=== PATIENT | female | born 1955 | race Caucasian/White ===

== ENCOUNTER 2022-05-19 09:48 | Emergency (ER) | payer MEDICARE ==
[~2022-05-19] VITALS: Ht 154.9 cm; Wt 57.3 kg
[~2022-05-19 09:48] MED LIST: SERT-128 PO; SIMV-45 PO
[2022-05-19] MEDS ORDERED: ondansetron/PF 4mg/2ml inj IV ONE (10:15)
[2022-05-19] MEDS ORDERED: morphine 4 MG/ML inj SYRINge IV ONE (10:40)
[2022-05-19 10:58] LABS: CLARITY,URINE CLEAR (Clear); COLOR,URINE STRAW (Yellow); GLUCOSE, URINE NEGATIVE (Neg); KETONES,URINE NEGATIVE (Neg); LEUKOCYTE ESTERASE ,URINE SMALL (Neg); NITRITES, URINE NEGATIVE (Neg); OCCULT BLOOD,URINE SMALL (Neg); PROTEIN,URINE NEGATIVE (Neg); UA COLLECTION TYPE CLN CATCH MIDSTREAM; UROBILINOGEN,URINE 0.2 E.U/dL (0.2-1.0)
[2022-05-19 11:03] LABS: BACTERIA,URINE 4+ /HPF (Neg); MUCUS STRANDS NONE SEEN /LPF (Neg); RBC,URINE 0-2 /HPF (0-2); SQUAMOUS EPITHELIAL CELL,UR FEW /LPF (FEW); WBC,URINE 0-4 /HPF (0-4)
[2022-05-19 11:15] LABS: BASOPHILS % (AUTO) 0.2 % (0-1); EOSINOPHILS % (AUTO) 0.6 % (0-6); HEMATOCRIT 38.2 % (35.0-45.0); HEMOGLOBIN 13.3 g/dl (12.0-16.0); LYMPHOCYTES # (AUTO) 0.6 X10'3 (1.1-4.8); LYMPHOCYTES % (AUTO) 8.9 % (21-51); MEAN CORPUSCULAR HGB CONC 34.8 g/dL (33.0-36.5); MEAN CORPUSCULAR VOLUME 89.1 FL (78-98); MEAN PLATELET VOLUME 7.6 FL (7.4-10.4); MONOCYTES # (AUTO) 0.3 X10'3 (0-0.9); MONOCYTES % (AUTO) 5.1 % (2-12); NEUTROPHILS # (AUTO) 5.4 X10'3 (1.8-7.7); NEUTROPHILS % (AUTO) 85.2 % (42-75); PLATELET COUNT 123 X10'3 (140-440); RED BLOOD COUNT 4.29 X10'6 (4.20-5.60); RED CELL DISTRIBUTION WIDTH 13.9 % (11.5-14.5); WHITE BLOOD COUNT 6.3 X10'3 (4.5-11.0)
[2022-05-19 11:29] LABS: ALANINE AMINOTRANSFERASE 30 U/L (12-78); ALBUMIN 4.6 G/DL (3.4-5.0); ALBUMIN/GLOBULIN RATIO 1.4 (1.1-1.5); ALKALINE PHOSPHATASE 89 IU/L (46-116); ANION GAP 12 (8-16); ASPARTATE AMINO TRANSFERASE 23 U/L (10-37); BILIRUBIN,TOTAL 0.9 MG/DL (0.1-1.0); BLOOD UREA NITROGEN 14 MG/DL (7-18); BUN/CREATININE RATIO 15.9 (6.6-38.0); CALCIUM 9.4 MG/DL (8.5-10.1); CHLORIDE 111 MMOL/L (99-107); CREATININE 0.88 MG/DL (0.40-0.90); GLUCOSE 134 MG/DL (70-104); LIPASE < 50 U/L (73-393); SODIUM 147 MMOL/L (135-145); TOTAL PROTEIN 7.8 G/DL (6.4-8.2); eGFR 64 ML/MIN
[2022-05-19 11:31] LABS: POTASSIUM 3.9 MMOL/L (3.5-5.1)
[2022-05-19] MEDS ORDERED: normal saline 1000ML IV soln IVB ONE (12:05)
[2022-05-19] MEDS ORDERED: NAPR-1154 PO (12:42)
[2022-05-19] MEDS ORDERED: FLO0.4C PO (12:42)
[2022-05-19] MEDS ORDERED: HYDR-3972 PO (12:42)
[2022-05-19 13:19] VITALS: BP 122/92
--- NOTE | 2022-05-19 13:19 | NUR ---
dr christian stopped iv fluids per pt, bag was still 1 liter. pt said she has diabetes insipidous
--- NOTE | 2022-05-19 13:23 | NUR ---
pt son ride home, present
== END 2022-05-19 13:10 | disposition home or self-care (01) ==
LOC: ER 09:48
DX: N23 Unspecified renal colic (principal); N20.1 Calculus of ureter; K21.9 Gastro-esophageal reflux disease without esophagitis; Z98.890 Other specified postprocedural states; E11.9 Type 2 diabetes mellitus without complications
CPT/HCPCS: 36415; 74176; 80053; 81001; 83690; 85025; 87088; 96374; 96375; 99284; J2270; J2405; J7030; 87077; 87186

== ENCOUNTER 2024-01-23 12:31 | Emergency (ER) | payer MEDICARE ==
[~2024-01-23] VITALS: Ht 154.9 cm; Wt 61.9 kg
[~2024-01-23 12:31] MED LIST changes: +NAPR-1154 PO
[2024-01-23 13:00] VITALS: BP 144/57; PULSE 64; RESP 18; TEMP 98; O2SAT 98
[2024-01-23] MEDS ORDERED: CEFD300C3 PO (13:59)
== END 2024-01-23 14:33 | disposition home or self-care (01) ==
LOC: ER 12:31
DX: N39.0 Urinary tract infection, site not specified (principal); B96.20 Unspecified Escherichia coli [E. coli] as the cause of diseases classified elsewhere; K21.9 Gastro-esophageal reflux disease without esophagitis; E11.9 Type 2 diabetes mellitus without complications; Z90.49 Acquired absence of other specified parts of digestive tract; Z88.2 Allergy status to sulfonamides; Z88.8 Allergy status to other drugs, medicaments and biological substances
CPT/HCPCS: 99283